=== PATIENT | female | born 1945 | race Caucasian/White ===

== ENCOUNTER → 2016-09-27 | Outpatient (CLI) | payer OTHER, MEDICARE ==
--- NOTE | 2016-09-27 12:17 | DIAGNOSTIC IMAGING REPORT ---
PROCEDURE: US KIDNEY/RENAL COMPLETE INDICATION: ADVANCED UTEROVAGINAL PROLAPSE, INCOMPLETE EMPTYING TECHNIQUE: Transabdominal scans of the kidneys with calculation of resistive indices. Prevoid and postvoid bladder volumes were obtained. COMPARISON: None. FINDINGS: RIGHT: Kidney measures 8.7 x 4.4 x 4.2 cm. Cortex measures 9 mm. No calculi or hydronephrosis. Resistive indices measure 0.7 or less. LEFT: Kidney measures 9.2 x 4.9 x 4.1 cm. Cortex measures 1 cm. No calculi or hydronephrosis. Resistive indices measure 0.7 or less. BLADDER: Ureteral jets not visualized. Prevoid bladder volume 65 ml and. Postvoid volume 63 ml. IMPRESSION: 1. Mild bilateral renal cortical atrophy 2. 63 ml postvoid residual bladder without evidence of significant emptying.
== END ==
LOC: US SRH 11:00
DX: N26.1 Atrophy of kidney (terminal) (principal); R33.9 Retention of urine, unspecified; N81.4 Uterovaginal prolapse, unspecified

== ENCOUNTER 2016-10-02 08:16 | Outpatient (CLI) | payer OTHER, MEDICARE ==
--- NOTE | 2016-10-02 11:36 | DIAGNOSTIC IMAGING REPORT ---
PROCEDURE: XR CHEST 2 VIEW INDICATION: PRE-OP EXAM TECHNIQUE: PA and lateral views. COMPARISON: Chest 06/18/2013 FINDINGS: Lungs are clear. Heart and mediastinum are normal. Thorax is normal. IMPRESSION: 1. Negative chest.
== END 2016-10-02 23:00 ==
LOC: XR SRH 08:16
DX: Z01.811 Encounter for preprocedural respiratory examination (principal)

== ENCOUNTER 2016-10-22 16:09 | Outpatient (CLI) | payer OTHER, MEDICARE ==
--- NOTE | 2016-10-22 17:03 | DIAGNOSTIC IMAGING REPORT ---
PROCEDURE: XR HIP 2VW W W/O AP PELVIS-LT INDICATION: BACK PAIN, LUMBAR TECHNIQUE: AP view of the pelvis and hips with lateral view of the left hip. COMPARISON: Hip films 07/23/2012 FINDINGS: Left HIP: Osseous structures and joint spaces are normal. PELVIS: Osseous pelvis is normal. IMPRESSION: 1. Negative pelvis and left hip.
== END 2016-10-22 23:00 ==
LOC: XR SRH 16:09
DX: M54.5 Low back pain (principal)

== ENCOUNTER 2016-10-28 10:50 | Emergency (ER) | payer OTHER, MEDICARE ==
--- NOTE | 2016-10-28 13:01 | ED NURSING NOTES ---
Clinical Report - Nurses [facility] [address] [place] [address] 10/28/2016 10:50 Patient: ORIANA BRITO TRIAGE Triage time 10:58. Acuity: LEVEL 2. Chief Complaint: ABDOMINAL PAIN. --11:07 Lashell Laureano R.N. 10:58 10/28/16. BP: 140/58. HR: 71. RR: 16. O2 saturation: 100%. Temp: 98.7 F. Pain level now 05/20. --11:07 Lashell Laureano R.N. Weight: 82.1 kg. Height/Length: 63.5 inches. BMI: 31.6. --11:06 Lashell Laureano R.N. Medications Levothroid Oral 50 mcg, daily. --11:01 Lashell Laureano R.N. Hydrocodone-Acetaminophen Oral, 3x a day as needed. --11:01 Lashell Laureano R.N. Diltiazem HCl ER Oral. --11:02 Lashell Laureano R.N. Baclofen External. --11:02 Lashell Laureano R.N. Oxybutynin Chloride Oral. --11:03 Lashell Laureano R.N. Bactrim DS Oral. --11:03 Lashell Laureano R.N. Dulcolax Oral. --11:03 Lashell Laureano R.N. Hydrochlorothiazide Oral. --11:04 Lashell Laureaon R.N. Allergies No Known Drug Allergy. --11:02 Lashell Laureano R.N. History Arrived by private vehicle. Historian: patient. Accompanied by family. Primary physician (Matias). ( patient post op from complete [facility] on October 16. Patient feels like her bowels are blocked). SOCIAL HX: No alcohol use or drug use. No recent travel. No infectious disease exposure. No known contact with a sick individual. NUTRITIONAL RISK ASSESSMENT: The nutritional risk assessment revealed no deficiencies. FUNCTIONAL ASSESSMENT: Functional assessment: no impairments noted. LEARNING NEEDS ASSESSMENT: The learning needs assessment revealed no barriers. SKIN INTEGRITY ASSESSMENT: Skin integrity risk assessment completed. No skin integrity risk identified. --11:07 Lashell Laureano R.N. ADDITIONAL SURGERIES: Bladder Suspension. Hysterectomy. --11:05 Lashell Laureano R.N. Interventions ID band on patient. --11:07 Lashell Laureano R.N. PHYSICAL ASSESSMENT GENERAL / NEURO / PSYCH: Alert. Oriented X 4. Appears in no acute distress. RESPIRATORY: Mild respiratory distress. Breath sounds within normal limits. CVS: Normal sinus rhythm noted. Capillary refill less than 2 seconds. GI / : The patient has had nausea. Abdominal distention. Abdominal tenderness. Bowel sounds within normal limits. Bloody vaginal discharge present. Abnormal stool color. ( from surgery). SKIN: Skin is warm and dry. --11:10 Lashell Laureano R.N. NURSING PROGRESS NOTES 11:11 10/28/16. Patient gowned. Head of bed elevated. Call light placed in reach. Side rails up x 1. Bed placed in lowest position. Brakes of bed on. Patient ready for evaluation- chart flagged. --11:11 Lashell Laureano R.N. 11:59 10/28/16. Fleets enema given, patient tolerated the procedure well. --11:59 Lashell Laureano R.N. 11:45 10/28/16. BP: 137/52. HR: 73. RR: 16. O2 saturation: 100%. Pain level now: 05/20. Additional comments: rectum. --12:00 Lashell Laureano R.N. 12:29 10/28/16. Reassessment after intervention (enema). Overall patient status is improved- she states feels better. ( pt ambulated to bedside commode. pt had light brown, fist-sized, hard stool.). --12:29 Birgit Kendrick R.N. 12:30. Reassessment after intervention. ( second BM, numerous balls of yellow/lee colored stool. Patient states "it was like pushing out a baby"). --12:36 Lashell Laureano R.N. 12:39 10/28/16. BP: 114/95. HR: 85. RR: 22. O2 saturation: 100%. Pain level now 04/20. --12:42 Alex Meza 13:11 10/28/16. BP: 126/50. HR: 68. RR: 16. O2 saturation: 99%. Temp: 98.6 F. Pain level now: 11/18. --13:12 Lashell Laureano R.N. DISPOSITION / DISCHARGE 13:16 10/28/16. Condition at departure: improved. The goals identified in the patient's plan of care were met. No learning barriers present. Discharge instructions provided and reviewed with the patient and spouse. Reviewed medication(s). Prescription(s) given to the patient (miralax). Reviewed referrals. Verbalized understanding. Written instructions provided in [place]. The patient was discharged home and accompanied by spouse. She left the Emergency Department ambulatory and via private vehicle. Spouse driving. --13:16 Lashell Laureano R.N. 13:16. --13:21 Lashell Laureano R.N. 13:17 10/28/16. BP: 126/50. HR: 68. RR: 16. O2 saturation: 100%. Temp: 98.6 F. Pain level now 11/18. --13:21 Lashell Laureano R.N. Locked/Released at 10/28/2016 13:22 by Lashell Laureano R.N.
--- NOTE | 2016-10-28 13:01 | ED ORDER SUMMARY ---
..... Patient: ORIANA BRITO OrderSheet [facility] VisitID: [id number] [address] [place] [address] 71y, F Registration Date/Time: 10/28/2016 ORDER SHEET Weight: 82.1 kg Allergies: No Known Drug Allergy GENERAL ORDERS: - (enema) (11:40 10/28/2016 Keaton Astorga) ([facility] 11:41 Rich Alba) MEDICATION ORDERS: IV FLUIDS: ORDER SHEET NOTES: [Electronically signed by Lashell Laureano R.N. (13:10/28/2016)] [Electronically signed by Tim Mckeon Dr. (07:02 11/03/2016)] [Electronically locked/signed by Lashell Laureano R.N. (13:10/28/2016)]
--- NOTE | 2016-10-28 13:01 | ED ORDER SUMMARY ---
..... Patient: ORIANA BRITO OrderSheet [facility] VisitID: [id number] [address] [place] [address] 71y, F Registration Date/Time: 10/28/2016 ORDER SHEET Weight: 82.1 kg Allergies: No Known Drug Allergy GENERAL ORDERS: - (enema) (11:40 10/28/2016 Keaton Astorga) ([facility] 11:41 Rich Alba) MEDICATION ORDERS: IV FLUIDS: ORDER SHEET NOTES: [Electronically signed by Lashell Laureano R.N. (13:10/28/2016)] [Electronically signed by Tim Mckeon Dr. (07:02 11/03/2016)] [Electronically locked/signed by Lashell Laureano R.N. (13:10/28/2016)]
--- NOTE | 2016-10-28 13:01 | ED NURSING NOTES ---
Clinical Report - Nurses [facility] [address] [place] [address] 10/28/2016 10:50 Patient: ORIANA BRITO TRIAGE Triage time 10:58. Acuity: LEVEL 2. Chief Complaint: ABDOMINAL PAIN. --11:07 Lashell Laureano R.N. 10:58 10/28/16. BP: 140/58. HR: 71. RR: 16. O2 saturation: 100%. Temp: 98.7 F. Pain level now 05/20. --11:07 Lashell Laureano R.N. Weight: 82.1 kg. Height/Length: 63.5 inches. BMI: 31.6. --11:06 Lashell Laureano R.N. Medications Levothroid Oral 50 mcg, daily. --11:01 Lashell Laureano R.N. Hydrocodone-Acetaminophen Oral, 3x a day as needed. --11:01 Lashell Laureano R.N. Diltiazem HCl ER Oral. --11:02 Lashell Laureano R.N. Baclofen External. --11:02 Lashell Laureano R.N. Oxybutynin Chloride Oral. --11:03 Lashell Laureano R.N. Bactrim DS Oral. --11:03 Lashell Laureano R.N. Dulcolax Oral. --11:03 Lashell Laureano R.N. Hydrochlorothiazide Oral. --11:04 Lashell Laureano R.N. Allergies No Known Drug Allergy. --11:02 Lashell Laureano R.N. History Arrived by private vehicle. Historian: patient. Accompanied by family. Primary physician (Matias). ( patient post op from complete [facility] on October 16. Patient feels like her bowels are blocked). SOCIAL HX: No alcohol use or drug use. No recent travel. No infectious disease exposure. No known contact with a sick individual. NUTRITIONAL RISK ASSESSMENT: The nutritional risk assessment revealed no deficiencies. FUNCTIONAL ASSESSMENT: Functional assessment: no impairments noted. LEARNING NEEDS ASSESSMENT: The learning needs assessment revealed no barriers. SKIN INTEGRITY ASSESSMENT: Skin integrity risk assessment completed. No skin integrity risk identified. --11:07 Lashell Laureano R.N. ADDITIONAL SURGERIES: Bladder Suspension. Hysterectomy. --11:05 Lashell Laureano R.N. Interventions ID band on patient. --11:07 Lashell Laureano R.N. PHYSICAL ASSESSMENT GENERAL / NEURO / PSYCH: Alert. Oriented X 4. Appears in no acute distress. RESPIRATORY: Mild respiratory distress. Breath sounds within normal limits. CVS: Normal sinus rhythm noted. Capillary refill less than 2 seconds. GI / : The patient has had nausea. Abdominal distention. Abdominal tenderness. Bowel sounds within normal limits. Bloody vaginal discharge present. Abnormal stool color. ( from surgery). SKIN: Skin is warm and dry. --11:10 Lashell Laureano R.N. NURSING PROGRESS NOTES 11:11 10/28/16. Patient gowned. Head of bed elevated. Call light placed in reach. Side rails up x 1. Bed placed in lowest position. Brakes of bed on. Patient ready for evaluation- chart flagged. --11:11 Lashell Laureano R.N. 11:59 10/28/16. Fleets enema given, patient tolerated the procedure well. --11:59 Lashell Laureano R.N. 11:45 10/28/16. BP: 137/52. HR: 73. RR: 16. O2 saturation: 100%. Pain level now: 05/20. Additional comments: rectum. --12:00 Lashell Laureano R.N. 12:29 10/28/16. Reassessment after intervention (enema). Overall patient status is improved- she states feels better. ( pt ambulated to bedside commode. pt had light brown, fist-sized, hard stool.). --12:29 Birgit Kendrick R.N. 12:30. Reassessment after intervention. ( second BM, numerous balls of yellow/lee colored stool. Patient states "it was like pushing out a baby"). --12:36 Lashell Laureano R.N. 12:39 10/28/16. BP: 114/95. HR: 85. RR: 22. O2 saturation: 100%. Pain level now 04/20. --12:42 Alex Meza 13:11 10/28/16. BP: 126/50. HR: 68. RR: 16. O2 saturation: 99%. Temp: 98.6 F. Pain level now: 11/18. --13:12 Lashell Laureano R.N. DISPOSITION / DISCHARGE 13:16 10/28/16. Condition at departure: improved. The goals identified in the patient's plan of care were met. No learning barriers present. Discharge instructions provided and reviewed with the patient and spouse. Reviewed medication(s). Prescription(s) given to the patient (miralax). Reviewed referrals. Verbalized understanding. Written instructions provided in Scottish. The patient was discharged home and accompanied by spouse. She left the Emergency Department ambulatory and via private vehicle. Spouse driving. --13:16 Lashell Laureano R.N. 13:16. --13:21 Lashell Laureano R.N. 13:17 10/28/16. BP: 126/50. HR: 68. RR: 16. O2 saturation: 100%. Temp: 98.6 F. Pain level now 11/18. --13:21 Lashell Laureano R.N. Locked/Released at 10/28/2016 13:22 by Lashell Laureano R.N.
--- NOTE | 2016-10-28 13:01 | ED CLINICAL REPORT ---
Clinical Report - Physicians/Mid Levels [facility] [address] [place] [address] 10/28/2016 10:50 Patient: ORIANA BRITO Time Seen: 1100. Arrived- By private vehicle. Historian- patient. HISTORY OF PRESENT ILLNESS Chief Complaint: RECTAL BLEEDING. This started past few days, has been severe and is still present (worsening). It was gradual in onset and has been waxing/waning but is not gone now. The patient has had rectal pain. She has had moderate constipation ("feels like there's cement up there"). No nausea, vomiting, diarrhea or abdominal pain. No known contact with a sick individual. Similar symptoms previously: None. Recent medical care: The patient was seen recently by a health care provider (had hysterectomy and sling procedure about a week ago. no BM for about 6 days). REVIEW OF SYSTEMS No abnormal bleeding, vaginal discharge, fever or skin rash. No complaint of rectal foreign body. PAST HISTORY Medications: Hydrochlorothiazide Oral. Dulcolax Oral. Bactrim DS Oral. Oxybutynin Chloride Oral. Baclofen External. Diltiazem HCl ER Oral. Hydrocodone-Acetaminophen Oral, 3x a day as needed. Levothroid Oral 50 mcg, daily. Allergies: No Known Drug Allergy. SOCIAL HISTORY Never smoker. No alcohol use or drug use. No recent travel. Is a local resident. ADDITIONAL NOTES The nursing notes have been reviewed. PHYSICAL EXAM Vital Signs: 10/28/2016 10:58 BP: 140/58. HR: 71. RR: 16. O2 saturation: 100%. Temp: 98.7 F. Oxygen saturation normal. Appearance: Alert. Oriented X3. No acute distress. Eyes: Pupils equal, round and reactive to light. Eyes normal inspection. ENT: Ears normal. Nose normal. Pharynx normal. Neck: Normal inspection. Neck supple. CVS: Normal heart rate and rhythm. Heart sounds normal. Pulses normal. Respiratory: No respiratory distress. Breath sounds normal. Abdomen: Soft and nontender. Abnormal bowel sounds (hypoactive). No organomegaly. No mass. Femoral pulses equal. Rectal: (declined). Skin: Skin warm and dry. Normal skin color. No rash. Normal skin turgor. Extremities: Extremities exhibit normal ROM. No lower extremity edema. PROGRESS AND PROCEDURES Course of Care: The patient is a pleasant 71-year-old female with recent surgical injury medication for what appears to be vaginal sling procedure. The patient is having no problems with the surgical area and states that she did well postoperatively andis feeling well. The patient however reports having problems with constipation. Patient describes being deidre stool softener. Patient reports not being on the MiraLAX however. Patient states thatshe is concerned because she's not had a bowel movement for the past 5-6 days. Patient is having any abdominal pain at this time. No other findings noted on examination. Patient is agreeable to the treatment plan after discussing several options with the patient Patient was able to have several large bowel movements while here in the emergency department after enema was provided. Patient expressedsignificantly improvedsymptoms withdefecation. No other acute abnormalities noted on patient's examination. Increasing patient'sbowel care regimen and Patient is agreeable to treatment plan. I discussed with patient in regards to her workup here in the emergency department as well as diagnosis, home care, follow-up, and return precautions. All questions have been answered. The patient expressed understanding of these instructions and was agreeable to them. Disposition: Discharged. Condition: good. CLINICAL IMPRESSION 10/28/2016 12:39 BP: 114/95. HR: 85. RR: 22. O2 saturation: 100%. Hypertensive. Oxygen saturation normal. Constipation (acute). Acute pain(rectal). INSTRUCTIONS Warnings: GENERAL WARNINGS: Return or contact your physician immediately if your condition worsens or changes unexpectedly, if not improving as expected, or if other problems arise. Specifically return if pain, vomiting, bleeding, breathing difficulty or fever. Your Current Medications: CONTINUE TAKING THE FOLLOWING MEDICATIONS: Baclofen External. Bactrim DS Oral. Diltiazem HCl ER Oral. Dulcolax Oral. Hydrochlorothiazide Oral. Hydrocodone-Acetaminophen Oral : 3x a day, prn. Levothroid Oral : 50 mcg daily. Oxybutynin Chloride Oral. Prescription Medications: Miralax: take 1 measuring cupful supplied mixed in 8 ounces juice every day as needed for constipation. Dispense twenty-six (26) ounce bottle. No refills. Substitution is permissible. Follow-up: Return to the emergency department as needed. Follow up with your doctor in three days. Reason for referral: recheck today's concerns. Summary of care provided to patient via paper. Screening today revealed the patient's blood pressure to be in the hypertensive range. Blood pressure screening was not performed during this visit because the patient has an active diagnosis of hypertension. The patient should follow up with a primary care provider for blood pressure management. Understanding of the discharge instructions verbalized by patient. (Electronically signed by Tim Mckeon Dr. 11/03/2016 7:02)
--- NOTE | 2016-11-03 07:02 | ED MAR SUMMARY ---
..... Medication Administration Record [facility] [address] [place], [place] [id number] Patient: ORIANA BRITO Visit ID: [id number] 71y, F Weight: 82.1 kg Height/Length: 63.5 in BMI: 31.6 ALLERGIES: No Known Drug Allergy
--- NOTE | 2016-11-03 07:02 | ED MAR SUMMARY ---
..... Medication Administration Record [facility] [address] [place], [place] [id number] Patient: ORIANA BRITO Visit ID: [id number] 71y, F Weight: 82.1 kg Height/Length: 63.5 in BMI: 31.6 ALLERGIES: No Known Drug Allergy
--- NOTE | 2016-11-03 07:02 | ED MED RECONCILIATION SUMMARY ---
Patient: ORIANA BRITO Medication Reconciliation Report [facility] VisitID: [id number] [address] [place] [address] 71y, F Registration Date/Time: 10/28/2016 Weight: 82.1 kg Height/Length: 60 in. BMI: 31.6 ALLERGIES: No Known Drug Allergy The patient's Home Medications are listed below: CONTINUE TAKING THE FOLLOWING MEDICATIONS: Baclofen External Bactrim DS Oral Diltiazem HCl ER Oral Dulcolax Oral Hydrochlorothiazide Oral Hydrocodone-Acetaminophen Oral, 3x a day Levothroid Oral 50 mcg, daily Oxybutynin Chloride Oral The source(s) of the original Home Medication information: Not obtained. The following Medications were given to the patient in the Emergency Department: None. The following Medications were prescribed to the patient: Miralax: take 1 measuring cupful supplied mixed in 8 ounces juice every day as needed for constipation. Dispense twenty-six (26) ounce bottle. No refills. Substitution is permissible. -- Tim Mckeon Dr.
--- NOTE | 2016-11-03 07:02 | ED DISCHARGE INSTRUCTIONS ---
Patient: ORIANA BRITO General Instructions [facility] VisitID: [id number] [place] [address] 71y, F Registration Date/Time: 10/28/2016 10/28/2016 12:39 BP: 114/95. HR: 85. RR: 22. O2 saturation: 100%. Hypertensive. Oxygen saturation normal. Constipation (acute). Acute pain(rectal). INSTRUCTIONS Warnings: GENERAL WARNINGS: Return or contact your physician immediately if your condition worsens or changes unexpectedly, if not improving as expected, or if other problems arise. Specifically return if pain, vomiting, bleeding, breathing difficulty or fever. Your Current Medications: CONTINUE TAKING THE FOLLOWING MEDICATIONS: Baclofen External. Bactrim DS Oral. Diltiazem HCl ER Oral. Dulcolax Oral. Hydrochlorothiazide Oral. Hydrocodone-Acetaminophen Oral : 3x a day, prn. Levothroid Oral : 50 mcg daily. Oxybutynin Chloride Oral. Prescription Medications: Miralax: take 1 measuring cupful supplied mixed in 8 ounces juice every day as needed for constipation. Dispense twenty-six (26) ounce bottle. No refills. Substitution is permissible. Follow-up: Return to the emergency department as needed. Follow up with your doctor in three days. Reason for referral: recheck today's concerns. Summary of care provided to patient via paper. Screening today revealed the patient's blood pressure to be in the hypertensive range. Blood pressure screening was not performed during this visit because the patient has an active diagnosis of hypertension. The patient should follow up with a primary care provider for blood pressure management. Understanding of the discharge instructions verbalized by patient. ADDITIONAL INFORMATION Pain, Uncertain Cause [Acute] Pain is the bodys way of calling attention to a problem. Pain can be caused by many conditions - some minor, some serious. In your case, we were not able to find the exact cause for your pain. However, at this time there is no sign of any serious or life-threatening illness causing your pain. Sometimes more tests will be needed to determine the cause. Other times, just allowing more time to pass will either make it clear what the problem is, or the pain will go away by itself. Home Care: You may use acetaminophen (Tylenol) or ibuprofen (Motrin, Advil) to control pain, unless another medicine was prescribed. [NOTE: If you have chronic liver or kidney disease or ever had a stomach ulcer or GI bleeding, talk with your doctor before using these medicines.] Follow Up with your doctor or as advised by our staff. Get Prompt Medical Attention if any of the following occur: Changes in the pattern of your pain Appearance of new symptoms Fever of 100.4F (38C) or higher, or as directed by your healthcare provider Constipation (Adult) Constipation is bowel movements that are less frequent than usual. Stools often become very hard and difficult to pass. This may lead to abdominal pain and bloating. It may also cause painful bowel movements. Constipation may be due to a diet thats low in fiber. Some medications, especially pain medications, can also cause it. Constipation may be treated with enemas, suppositories, laxatives or stool softeners. Your doctor will advise you which will work best for you. Follow the advice below to help avoid this problem in the future. Home Care Medication: Take any medicines as directed. Some laxatives are safe only for occasional use. Others can be taken on a regular basis. Talk to your doctor or pharmacist if you have questions. General Care: Prescription pain medications can cause constipation. If you are prescribed pain medications, ask the doctor whether you should also take a stool softener. A diet high in fiber with plenty of fluids helps to maintain regular, soft bowel movements. The following foods are good sources of dietary fiber: Cereals and breads: Whole grain cereal with bran, oatmeal, rolled oats, whole grain breads Fruits: All fruits (fresh and dried), raisins, prunes, apricots, berries, figs Vegetables: Any fresh vegetables, especially peas, broccoli, brussels sprouts, winter squash, green beans, cauliflower, granados beans, carrots Other: Popcorn, brown rice Drink plenty of water when you increase the amount of fiber you eat. Follow Up with your doctor or return to this facility if symptoms do not improve in the next few days. You may require further tests or a referral to a specialist. Get Prompt Medical Attention if any of the following occur: Fever over 100.4F (38C) Failure to resume normal bowel movements Increasing abdominal or back pain Nausea or vomiting Abdominal swelling Blood in the stool Weakness, dizziness or fainting Unexpected vaginal bleeding You have been given the following additional information: Pain, Uncertain Cause (Acute) Constipation (Adult) (Electronically signed by Tim Mckeon Dr. 11/03/2016 7:02)
--- NOTE | 2016-11-03 07:02 | ED MED RECONCILIATION SUMMARY ---
Patient: ORIANA BRITO Medication Reconciliation Report [facility] VisitID: [id number] [address] [place] [address] 71y, F Registration Date/Time: 10/28/2016 Weight: 82.1 kg Height/Length: 60 in. BMI: 31.6 ALLERGIES: No Known Drug Allergy The patient's Home Medications are listed below: CONTINUE TAKING THE FOLLOWING MEDICATIONS: Baclofen External Bactrim DS Oral Diltiazem HCl ER Oral Dulcolax Oral Hydrochlorothiazide Oral Hydrocodone-Acetaminophen Oral, 3x a day Levothroid Oral 50 mcg, daily Oxybutynin Chloride Oral The source(s) of the original Home Medication information: Not obtained. The following Medications were given to the patient in the Emergency Department: None. The following Medications were prescribed to the patient: Miralax: take 1 measuring cupful supplied mixed in 8 ounces juice every day as needed for constipation. Dispense twenty-six (26) ounce bottle. No refills. Substitution is permissible. -- Tim Mckeon Dr.
== END 2016-10-28 13:06 | disposition home or self-care (01) ==
LOC: ED SRH 10:50
DX: K59.00 Constipation, unspecified (principal); K62.89 Other specified diseases of anus and rectum; I10 Essential (primary) hypertension; Z79.899 Other long term (current) drug therapy; Z79.891 Long term (current) use of opiate analgesic; Z79.2 Long term (current) use of antibiotics